=== PATIENT | female | born 1960 | race Caucasian/White ===

== ENCOUNTER 2017-09-13 05:01 | Inpatient (IN) | payer BC, OTHER ==
[2017-08-04 11:42] VITALS: Ht 160 cm; Wt 138.0 kg
--- NOTE | 2017-08-04 12:09 | PAT Medication Instructions ---
Service Date Aug 04, 2017. Current Home Medication List Aspirin (Aspirin Ec), 81 MG PO HS Cholecalciferol (D 2000), 1 TAB PO QAM Cyanocobalamin (B-12), 1 TAB PO QAM Furosemide (Lasix), 20 MG PO HS Levothyroxine Sodium (Synthroid), 150 MCG PO QAM Magnesium Oxide (Mg Supplement (Magnesium), 1 TAB PO QAM Meloxicam (Mobic), 15 MG PO UD Naproxen (Aleve), 2 TAB PO UD Potassium (Potassium), 1 TAB PO QAM Propranolol Hcl (Propranolol Hcl), 1 TAB PO TID Medication Instructions For Your Scheduled Surgery - Check with surgeon for instructions: Meloxicam (Mobic), 15 MG PO UD Naproxen (Aleve), 2 TAB PO UD - Hold the following medications the morning of surgery: Potassium (Potassium), 1 TAB PO QAM Magnesium Oxide (Mg Supplement (Magnesium), 1 TAB PO QAM Cholecalciferol (D 1999), 1 TAB PO QAM Cyanocobalamin (B-12), 1 TAB PO QAM - Take the following medications the morning of surgery with a sip of water: Propranolol Hcl (Propranolol Hcl), 1 TAB PO TID Levothyroxine Sodium (Synthroid), 150 MCG PO QAM - Take the following medications as scheduled the night before surgery: Aspirin (Aspirin Ec), 81 MG PO HS (okay to continue per surgeon) Furosemide (Lasix), 20 MG PO HS Propranolol Hcl (Propranolol Hcl), 1 TAB PO TID If you have any questions please call us at [phone] or [phone] or [phone]
[2017-08-04 12:53] LABS: BASO % 0.7 %; BASO ABS # 0.04 K/uL (0-0.2); COMPLETE YES; HEMATOCRIT 40.8 % (37-47); IG% 0.2 %; LYMPH % 39.5 %; LYMPH ABS # 2.37 K/uL (1.2-3.4); MEAN CELL VOLUME 89.9 fL (80-100); MEAN CORPUSCULAR HEMOGLOBIN 29.7 pg (25-34); MEAN CORPUSCULAR HGB CONC 33.1 g/dl (32-36); MEAN PLATELET VOLUME 10.2 fL (7.4-10.4); MONO % 7.3 %; NEUT % 48.3 %; PLATELET COUNT 227 K/uL (130-400); RED BLOOD COUNT 4.54 M/uL (4.2-5.4)
[2017-08-04 13:05] LABS: URINE APPEARANCE CLEAR (CLEAR); URINE BILIRUBIN NEG (NEG); URINE COLOR YELLOW; URINE NITRITE NEG (NEG); URINE SPECIFIC GRAVITY 1.023 (1.000-1.030); UROBILINOGEN NEG (NEG)
[2017-08-04 13:06] LABS: PROTHROMBIN TIME (PATIENT) 10.6 SECONDS (9.0-12.0)
[2017-08-04 13:09] LABS: MANUAL MICROSCOPIC REQUIRED? NO; REVIEW REQ? NO
[2017-08-04 13:35] LABS: BUN/CREATININE RATIO 20.2 (10-20); CALCIUM 8.6 mg/dl (8.5-10.1); CREATININE 0.93 mg/dl (0.60-1.20); POTASSIUM 4.4 mmol/L (3.5-5.1)
--- NOTE | 2017-08-04 13:56 | HISTORY & PHYSICAL EXAMINATION ---
DATE OF ADMISSION: 09/13/2017 CHIEF COMPLAINT: Right knee pain. HISTORY OF PRESENT ILLNESS: Ms. Rock is a 56-year-old female with a 5-year history of right knee pain. The patient rates her pain at 9/10. She has pain with her daily activities. She has limited standing and walking tolerance. Pain is worse with weightbearing. The patient has had prior injections, bracing, home exercise program, and NSAIDS without relief. She has failed conservative treatment and is now scheduled to proceed with right knee replacement. PAST MEDICAL HISTORY: Hypertension, hypothyroid, and acid reflux. She denies heart disease, diabetes or DVT. PAST SURGICAL HISTORY: D&C in 2016, in 1988, and T&A in 1965. SOCIAL HISTORY: The patient denies alcohol or tobacco use. She lives in a single story home. She is and works as a housing management. FAMILY HISTORY: Positive for DVT in her maternal and paternal aunts. MEDICATIONS: Furosemide 20 mg daily, propranolol 40 mg twice daily, levothyroxine 150 mcg daily, aspirin 81 mg daily, Aleve 220 mg, meloxicam 15 mg, vitamin D3 at 2000 units, magnesium 250 mg, vitamin B12 at 500 mcg, and potassium 99 mg. ALLERGIES: None. REVIEW OF SYSTEMS: See HPI. Ten other systems reviewed, all negative. PHYSICAL EXAMINATION: VITAL SIGNS: Height 5 feet 2 inches, weight 305, and BMI is 56. GENERAL: This is a well-developed and well-nourished, obese female who is alert and oriented x3. Mood and affect are appropriate. HEENT: Normocephalic and atraumatic. Mucous membranes are moist and intact. NECK: Supple without lymphadenopathy. HEART: Regular rate and rhythm without murmurs, rubs or gallops. LUNGS: Clear to auscultation without wheezes or rhonchi. ABDOMEN: Soft and nontender. Bowel sounds are equal and active. She does have a large pannus. EXTREMITIES: No ecchymosis, redness or warmth. She has a Emanuel cyst posteriorly. She has varus deformity with moderate effusion. Range of motion is from 20-100 degrees of flexion. She does have a fairly moderate flexion contracture. She has +1 laxity. She is neurovascularly intact with +5/5 strength. X-RAY EXAMINATION: AP and lateral views showed joint space narrowing and osteophyte formation. IMPRESSION: 1. Degenerative joint disease, right knee. 2. Morbid obesity. PLAN: The patient will be admitted for a right total knee arthroplasty. We will plan on aspirin for DVT prophylaxis. The patient's PCP is Dr. Oneill of [facility]. She is going to do outpatient physical therapy. MESHA
[~2017-09-13] VITALS: Ht 160 cm; Wt 138.0 kg
[2017-09-13] VITALS (10 sets, daily range): BP systolic 100–164; BP diastolic 63–95; PULSE 64–76; TEMP 36.5–37; O2SAT 94–97
[~2017-09-13 05:01] MED LIST: ASPI81TA28 PO; CHOL1TAB76 PO; CYAN50002 PO; FURO-85 PO; LEVO150T PO; MAGN500C PO; MELO15TA4 PO; NAPR1TAB9 PO; POTA99TA PO; PROP40TA5 PO
[2017-09-13] MEDS ORDERED: DEXAMETHASONE 4 MG TAB PO SCH (06:00)
[2017-09-13] MEDS ORDERED: CeleBREX 200 MG CAP PO SCH (06:00)
[2017-09-13] MEDS ORDERED: FAMOTIDINE 20 MG TAB PO SCH (06:00)
[2017-09-13] MEDS ORDERED: ROPIVACAINE 5MG/ML 30 ML 150 MG, BUPIVACAINE 0.5% MPF INJ 30 ML, EpINEphrine HCL INJ 0.... INFIL SCH ×8 (06:00)
[2017-09-13] MEDS ORDERED: ACETAMINOPHEN 500 MG TAB PO SCH (06:00)
[2017-09-13] MEDS ORDERED: CEFAZOLIN 3000MG IV PUSH 15 ML IV SCH (06:00)
[2017-09-13] MEDS ORDERED: METOCLOPRAMIDE HCL 10 MG TAB PO SCH (06:00)
[2017-09-13] MEDS ORDERED: LACTATED RINGER'S 1000ML IV SCH (06:00)
[2017-09-13] MEDS ORDERED: LACTATED RINGER'S 1000ML 500 ML IV ONE (06:00)
[2017-09-13] MEDS ORDERED: LACTATED RINGER'S 1000ML 1,000 ML IV SCH (06:00)
[2017-09-13] MEDS ORDERED: GABAPENTIN 300 MG CAP PO SCH (06:00)
[2017-09-13] MEDS ORDERED: BUPIVACAINE 0.5 % 5 MG/1 ML PF 10ML VIAL ONE (06:16)
[2017-09-13] MEDS ORDERED: ROPIVACAINE 0.5% 5 MG/ML 30 ML VIAL ONE (06:16)
[2017-09-13] MEDS: TRANEXAMIC ACID INJ 1,000 MG in SYRINGE 0 ML IV SCH ×2 (06:30→06:34)
[2017-09-13] MEDS ORDERED: POVIDONE-IODINE OP SOLN 30 ML BTL ONE (06:37)
[2017-09-13] MEDS ORDERED: BACITRACIN 50000 UNIT VIAL ONE (06:37)
[2017-09-13] MEDS ORDERED: ORTHO JOINT ANESTHETIC ONE (06:37)
[2017-09-13] MEDS ORDERED: MIDAZOLAM HCL 1 MG/ML 2ML VIAL ONE (06:39)
--- NOTE | 2017-09-13 07:01 | History & Physical Bridge Note ---
H&P Re-Evaluation Bridge Note: I have examined the patient, reviewed the History & Physical and in the interval since the performance of the History & Physical I have noted the following changes of clinical significance: No changes noted
--- NOTE | 2017-09-13 07:09 | History and Physical ---
History & Physical Date Sep 13, 2017. Chief Complaint Patient Lyubov Rokc presents as a 57-year-old white female being seen and evaluated for a plain pain about her knee for a total knee arthroplasty she's failed attempts at conservative management including injections anti- inflammatories relative rest activity modification History of Present Illness Ongoing pain about her knee presents for total knee arthroplasty The patient is a 57 year old female with complaints of Additional History Hepatic Disease: No Endocrine Disorder: Yes Kidney Disease: No Hypertension: Yes Heart Disease: No Bleeding Tendencies: No Infectious Diseases: No Allergies Coded Allergies: BEE STING (Verified Allergy, Mild, LOCALIZED SWELLING; OCCURED A CHILD , 09/13/17) NO KNOWN DRUG ALLERGIES (Verified Allergy, Unknown, , 09/13/17) Home Medications Scheduled Aspirin (Aspirin Ec), 81 MG PO HS Cholecalciferol (D 1999), 1 TAB PO QAM Cyanocobalamin (B-12), 1 TAB PO QAM Furosemide (Lasix), 20 MG PO HS Levothyroxine Sodium (Synthroid), 150 MCG PO QAM Magnesium Oxide (Mg Supplement (Magnesium), 1 TAB PO QAM Meloxicam (Mobic), 15 MG PO UD Naproxen (Aleve), 2 TAB PO UD Potassium (Potassium), 1 TAB PO QAM Propranolol Hcl (Propranolol Hcl), 1 TAB PO TID Physical Examination Skin: warm/dry, no rash Eyes: normal inspection, EOMI, sclerae normal ENT: normal ENT inspection, pharynx normal Head: normocephalic, atraumatic Neck: supple, no adenopathy, trachea midline Respiratory/Chest: lungs clear, normal breath sounds, no respiratory distress Cardiovascular: regular rate, rhythm, no edema, no murmur Abdomen / GI: normal bowel sounds, non tender Back: normal inspection Extremities: normal inspection, normal range of motion Neurologic/Psych: no motor/sensory deficits, alert, normal reflexes, oriented x 3 Addiitonal Comments: Patient has history of hypertension and hypothyroidism as well as acid reflux Diagnosis Severe end-stage DJD plan for total knee arthroplasty postoperative pain management DVT prophylaxis Plan of Treatment Postoperative pain management DVT prophylaxis antibiotics
[2017-09-13] MEDS ORDERED: EpHEDrine SULFATE INJ 50 MG/ML AMP IV PRN (08:30)
[2017-09-13] MEDS ORDERED: HYDROmorphone INJ 2 MG/ML SYR/VIAL IV PRN (08:30)
[2017-09-13] MEDS ORDERED: PHENYLEPHRINE 100MCG/ML 5ML SYR IV PRN (08:30)
[2017-09-13] MEDS ORDERED: ONDANSETRON INJ 2 MG/ML 2 ML VIAL IV PRN ×2 (08:30→09:30)
[2017-09-13] MEDS ORDERED: ATROPINE SULFATE 0.1 MG/ML 5ML SYR IV PRN (08:30)
--- NOTE | 2017-09-13 08:32 | [facility] Operative Report ---
Operative Report Operative Date Sep 13, 2017. Pre-Operative Diagnosis Right Knee Degenerative Joint Disease Post-Operative Diagnosis Same Procedure(s) Performed Right Total Knee Arthroplasty Cemented utilizing Taylor [employer] Nephew journey to patient-matched total knee arthroplasty utilizing size 3 femur to tibia 12 poly-[address] Aceves Clay Modeler Surgeon(s) Liz Preston PA-C Estimated Blood Loss 5ML Findings Severe end-stage DJD varus alignment osteophytes subchondral sclerosis cystic changes Nourse wants to conservative therapy Specimens A. Right knee bone and tissue Complication(s) None Disposition Recovery Room / PACU Indications Patient felt into conservative management including physical therapy anti- inflammatories relative rest likely modification bracing presents for total knee arthroplasty findings were noted as above Description of Procedure After proper prepping and draping of the Right lower extremity anterior midline incision was made over the region of the extensor extensor mechanism after meticulous hemostasis was obtained and maintained in subcutaneous tissues a medial parapatellar incision was made The patella was subluxed lateralward the medial lateral gutter were cleaned from any hypertrophic synovitis and scar tissue of the distal femoral block was placed and the distal femoral osteotomy cut was made subsequently the chamfers anterior and posterior osteotomy cuts were made utilizing the 4-in-1 block the tibia was subsequently subluxed anteriorward medial and ateral meniscal remnants were excised in their entirety remnants of the anterior and posterior cruciate ligaments were excised in their entirety excellent exposure of the proximal tibia was obtained the tibial osteotomy guide was placed on the proximal tibial osteotomy cut was made once again the knee was irrigated with copious amounts of sterile saline solution the patella was subsequently everted lateralward thickened scar tissue around the patella was removed the patella was subsequently cut utilizing a freehand technique and was drilled prepared for final preparation and placement of patella socially flexion-extension gaps were checked and the equal and symmetric trials were placed to the appropriate femoral and tibial trials with poly-spacer being placed for equal flexion and extension gaps and full range of motion including extension to 0 and flexion to 140 the trial components after having been taken to recovery range of motion was subsequently removed meticulous hemostasis was obtained and maintained subsequently a knee block injection of joint cocktail including ropivacaine 0.5% 150 mg. Bupivacaine 0.5 % epinephrine 1-200,030 mL's toradol 30 mg dexamethasone 4 mg ketamine 10 mg clonidine 100 micrograms normal saline solution 30 mg was infiltrated into the soft tissues of the posterior knee medial lateral gutters and periosteal synovium special attention was paid to protect neurovascular structures at all times subsequently trial components having been removed the knee was irrigated with sterile saline solution. debris was removed the proximal tibia was subsequently prepared and was made ready for the placement of the tibial component tibial component was also cemented and tamped into position the femoral component was subsequently placed and cemented in the position the patellar component was subsequently cemented in position because hemostasis once again obtained and maintained wound having been thoroughly irrigated with debridement and debridement lavage was performed as well as a medial parapatellar incision closed with #1 Vicryl in interrupted fashion subcutaneous was closed with #2 Vicryl skin was closed with skin clips. PA-C was necessary for prepping and drapping as well as wound closure of deep fascia Sub cutaneous tissue and skin and was necessary for the case. A sterile compressive dressing was placed patient was taken to recovery in stable condition of report dictated by Ketan I attest to the content of the Intraoperative Record and any orders documented therein. Any exceptions are noted below. I attest to the content of the Intraoperative Record and any orders documented therein. Any exceptions are noted below.
[2017-09-13] MEDS ORDERED: PROPOFOL IV EMULSION 10 MG/ML 20 ML VIAL IV ONE (08:44)
[2017-09-13] MEDS ORDERED: LIDOCAINE HCL 2% 2 ML VIAL (20MG/ML) ONE (08:44)
[2017-09-13] MEDS ORDERED: ALUMINUM/MAGNESIUM/SIMETH (MAALOX MAX) 30 ML UDC PO PRN (09:30)
[2017-09-13] MEDS ORDERED: MoRPHine SULFATE 2 MG/ML CARP IV PRN (09:30)
[2017-09-13] MEDS ORDERED: SOD PHOSPHATE/SOD BIPHOSPHATE ENEMA 132 ML BTL PR PRN (09:30)
[2017-09-13] MEDS ORDERED: BISACODYL 10 MG SUPP PR PRN (09:30)
[2017-09-13] MEDS ORDERED: OXYCODONE HCL IR 5 MG TAB (IMMEDIATE RELEASE) PO PRN (09:30)
[2017-09-13] MEDS ORDERED: MAGNESIUM HYDROXIDE SUSP 30 ML UDC PO PRN (09:30)
[2017-09-13] MEDS ORDERED: ZOLPIDEM TARTRATE 5 MG TAB PO PRN (09:30)
--- NOTE | 2017-09-13 09:43 | DIAGNOSTIC IMAGING REPORT ---
R KNEE 2 VIEWS ROUTINE CLINICAL HISTORY: Osteoarthritis. Postoperative study COMPARISON: None. DISCUSSION: There are postsurgical changes of a total right knee arthroplasty and patellar resurfacing. The femoral and tibial components appear well seated. Overlying surgical drains are evident. There is air within soft tissues consistent with recent surgery. IMPRESSION: Postsurgical changes of a total right knee arthroplasty. Electronically signed by: Ashutosh Johnson M.D. 09/13/2017 9:42 AM Dictated Date/Time: 09/13/2017 9:41 AM
--- NOTE | 2017-09-13 10:39 | Anesthesiology Progress Note ---
Anesthesia Post Op Note Date & Time Sep 13, 2017 at 10:39 Vital Signs Pain Intensity: 0 Vital Signs Past 12 Hours Date Time Temp Pulse Resp B/P (MAP) Pulse Ox O2 Delivery O2 Flow Rate FiO2 09/13/17 10:16 69 20 09/13/17 10:16 68 20 94 09/13/17 10:15 104/62 09/13/17 10:12 36.8 09/13/17 10:11 68 20 09/13/17 10:11 70 20 95 09/13/17 10:10 118/63 09/13/17 10:07 67 18 09/13/17 10:07 66 18 96 09/13/17 10:05 125/65 09/13/17 10:02 66 18 95 09/13/17 10:02 66 18 09/13/17 10:01 66 19 96 09/13/17 10:01 66 19 09/13/17 10:00 106/62 09/13/17 09:56 65 20 09/13/17 09:56 65 20 96 09/13/17 09:55 117/62 09/13/17 09:51 64 19 09/13/17 09:51 65 19 94 09/13/17 09:50 112/61 09/13/17 09:47 63 18 94 09/13/17 09:47 63 18 09/13/17 09:45 117/69 09/13/17 09:42 63 19 09/13/17 09:42 63 19 94 09/13/17 09:41 61 18 96 09/13/17 09:41 62 18 09/13/17 09:40 116/67 09/13/17 09:39 36.8 09/13/17 09:36 62 21 94 09/13/17 09:36 62 21 09/13/17 09:35 130/72 09/13/17 09:32 64 19 95 09/13/17 09:32 66 19 09/13/17 09:30 122/77 09/13/17 09:27 74 18 09/13/17 09:27 76 18 97 09/13/17 09:25 125/65 09/13/17 09:22 61 19 98 09/13/17 09:22 62 19 09/13/17 09:20 113/76 09/13/17 09:17 62 19 98 09/13/17 09:17 62 19 09/13/17 09:15 126/75 09/13/17 09:12 36.6 70 14 121/74 96 Oxymask 10 09/13/17 09:12 65 14 121/74 97 09/13/17 09:12 66 14 09/13/17 05:54 36.5 69 20 164/95 95 Room Air Notes Mental Status: alert / awake / arousable, participated in evaluation Pt Amnestic to Procedure: Yes Nausea / Vomiting: adequately controlled Pain: adequately controlled Airway Patency, RR, SpO2: stable & adequate BP & HR: stable & adequate Hydration State: stable & adequate Anesthetic Complications: no major complications apparent
[2017-09-13] MEDS: D5W AND 1/2NSS + 20MEQ KCL 1,000 ML IV SCH ×2 (11:35→21:32)
[2017-09-13] MEDS: KETOROLAC TROMETHAMINE 30 MG/ML VIAL IV. SCH ×3 (13:09→23:31)
[2017-09-13] MEDS: ACETAMINOPHEN 500 MG TAB PO SCH ×2 (13:57→21:32)
[2017-09-13] MEDS: PROPRANOLOL HCL 20 MG TAB PO SCH ×2 (13:57→20:40)
[2017-09-13] MEDS: CEFAZOLIN IV 2,000 MG in SYRINGE 0 ML IV SCH ×2 (15:59→23:31)
[2017-09-13] MEDS: ASPIRIN 81 MG ECTAB PO SCH (20:40)
[2017-09-13] MEDS: FUROSEMIDE 20 MG TAB PO SCH (20:40)
[2017-09-13] MEDS: SENNA 8.6 MG TAB PO SCH (20:40)
[2017-09-14 03:40] VITALS: BP 117/72; PULSE 67; TEMP 36.6; O2SAT 96
[2017-09-14] MEDS: ACETAMINOPHEN 500 MG TAB PO SCH ×3 (05:31→21:39)
[2017-09-14] MEDS: LEVOTHYROXINE 150 MCG TAB PO SCH (05:31)
[2017-09-14] MEDS: KETOROLAC TROMETHAMINE 30 MG/ML VIAL IV. SCH (05:32)
[2017-09-14 06:44] LABS: HEMATOCRIT 37.1 % (37-47); MEAN CELL VOLUME 88.5 fL (80-100); MEAN CORPUSCULAR HEMOGLOBIN 29.6 pg (25-34); MEAN CORPUSCULAR HGB CONC 33.4 g/dl (32-36); MEAN PLATELET VOLUME 10.2 fL (7.4-10.4); PLATELET COUNT 224 K/uL (130-400); RED BLOOD COUNT 4.19 M/uL (4.2-5.4); WHITE BLOOD COUNT 12.58 K/uL (4.8-10.8)
[2017-09-14 07:12] VITALS: BP 136/86; PULSE 57; TEMP 36.6; O2SAT 96
[2017-09-14] MEDS: D5W AND 1/2NSS + 20MEQ KCL 1,000 ML IV SCH (07:17)
[2017-09-14 07:21] LABS: BUN/CREATININE RATIO 20.2 (10-20); CALCIUM 8.5 mg/dl (8.5-10.1); CREATININE 0.99 mg/dl (0.60-1.20); POTASSIUM 4.4 mmol/L (3.5-5.1)
[2017-09-14] MEDS ORDERED: DEXAMETHASONE 4 MG TAB PO ONE (07:30)
--- NOTE | 2017-09-14 07:32 | Orthopedic Progress Note ---
Orthopedic Progress Note Date of Service Sep 14, 2017. Subjective Post OP Day: 1 Reports: feeling well, Denies: chest pain, SOB, nausea / vomiting, light headedness, calf pain Additional Notes: Doing well. Has been up ambulating without difficulty. No complaints this AM. Considering going home today. Objective calves soft nontender, N/V intact, dressing C/D/I, A&O x3, toes mobile, hemovac drainage (75ml latest shift) Date Time Temp Pulse Resp B/P (MAP) Pulse Ox O2 Delivery O2 Flow Rate FiO2 09/14/17 07:12 36.6 57 19 136/86 (103) 96 Room Air 09/14/17 03:40 36.6 67 18 117/72 (87) 96 Room Air 09/13/17 23:50 36.5 64 18 112/73 (86) 95 Room Air 09/13/17 23:45 Room Air 09/13/17 19:15 36.5 76 17 117/75 (89) 94 Room Air 09/13/17 16:00 95 Room Air 09/13/17 15:18 36.5 70 17 100/63 (75) 96 Nasal Cannula 2.0 09/13/17 13:38 36.8 75 16 112/64 (80) 96 Nasal Cannula 2.0 09/13/17 12:30 36.8 75 19 101/64 (76) 97 Nasal Cannula 2.0 09/13/17 11:28 37.0 72 16 122/71 (88) 95 Nasal Cannula 2.0 09/13/17 11:00 36.5 73 19 133/82 (99) 95 Nasal Cannula 2.0 09/13/17 10:30 Nasal Cannula 2.0 09/13/17 10:30 Nasal Cannula 2.0 09/13/17 10:30 36.8 73 16 110/71 (84) 96 Nasal Cannula 2.0 09/13/17 10:16 69 20 09/13/17 10:16 68 20 94 09/13/17 10:15 104/62 09/13/17 10:12 36.8 09/13/17 10:11 68 20 09/13/17 10:11 70 20 95 09/13/17 10:10 118/63 09/13/17 10:07 67 18 09/13/17 10:07 66 18 96 09/13/17 10:05 125/65 09/13/17 10:02 66 18 95 09/13/17 10:02 66 18 09/13/17 10:01 66 19 96 09/13/17 10:01 66 19 09/13/17 10:00 106/62 09/13/17 09:56 65 20 09/13/17 09:56 65 20 96 09/13/17 09:55 117/62 09/13/17 09:51 64 19 09/13/17 09:51 65 19 94 09/13/17 09:50 112/61 09/13/17 09:47 63 18 94 09/13/17 09:47 63 18 09/13/17 09:45 117/69 09/13/17 09:42 63 19 09/13/17 09:42 63 19 94 09/13/17 09:41 61 18 96 09/13/17 09:41 62 18 09/13/17 09:40 116/67 09/13/17 09:39 36.8 09/13/17 09:36 62 21 94 09/13/17 09:36 62 21 09/13/17 09:35 130/72 09/13/17 09:32 64 19 95 09/13/17 09:32 66 19 09/13/17 09:30 122/77 09/13/17 09:27 74 18 09/13/17 09:27 76 18 97 09/13/17 09:25 125/65 09/13/17 09:22 61 19 98 09/13/17 09:22 62 19 09/13/17 09:20 113/76 09/13/17 09:17 62 19 98 09/13/17 09:17 62 19 09/13/17 09:15 126/75 09/13/17 09:12 36.6 70 14 121/74 96 Oxymask 10 09/13/17 09:12 65 14 121/74 97 09/13/17 09:12 66 14 Laboratory Results 24 Hours: Test 09/14/17 06:23 Hematocrit 37.1 % Hemoglobin 12.4 g/dL Assessment & Plan Assessment: POD 1 s/p Right TKA Plan: PT/OT DVT Proph - BID ASA Pain Mgmt - OxyIR, Tramadol, Celebrex, Tylenol, Morphine DC plans - Plan for OPPT; POSSIBLE DC TO HOME TODAY; WILL RECHECK LATER IN THE DAY
--- NOTE | 2017-09-14 07:35 | Discharge Instructions ---
Discharge Instructions Date of Service Sep 14, 2017. Admission Reason for Admission: Right Knee Osteoarthritis Discharge Discharge Diagnosis / Problem: RIGHT KNEE DJD Discharge Goals Goal(s): Decrease discomfort, Improve function, Increase independence Activity Recommendations Activity Limitations: per Instructions/Follow-up section Weightbearing Status: Right weightbearing (as tolerated) . Instructions / Follow-Up Instructions / Follow-Up ACTIVITY RECOMMENDATIONS: SELF CARE INSTRUCTIONS AFTER TOTAL KNEE REPLACEMENT A. You may need to continue a physical therapy program after discharge from the hospital. There are several options available to you. Your doctor will assist you in selecting the best one for you. 1. An out-patient facility 2 to 3 times a week for therapy or home therapy. 2. Continue working on all exercises taught to you in the hospital. Your goals should be to increase bending of your knee to 90 degrees and beyond and to fully straighten your knee. B. You may progress at your own pace from walking with a walker or crutches to a cane; then to no assistive devices. C. Make walking a part of your daily routine. Be up as much as comfortable with rest periods throughout the day. Rest with leg elevation is very important. Use the ice wrap frequently for the first 3-4 weeks. D. There are no restrictions on activities. You may ride in a car, shop, participate in water hauler and all social activities. E. Wear the long elastic stockings (AUGUST hose) 20 hours a day for 2 weeks after surgery. They can be removed several times a day for laundering and for a bath. F. You may shower, no tub baths until cleared by your doctor. SPECIAL CARE INSTRUCTIONS: VERY IMPORTANT TO READ AND REVIEW A. There are a few signs you need to watch for after you are home. Call [facility] if you notice any of the followin. Increased severe knee pain. Some pain is expected especially when you exercise. 2. Increased swelling in your leg or knee; pain or swelling of the calf muscle in either lower leg. 3. Any fluid drainage from the incision. 4. Shortness of breath or chest pain. B. Please call [facility] at if you have any concerns or questions about your operation or recovery. The doctor or his nurse will return your call promptly. C. You must take antibiotics before dental work, bladder, bowel or other surgery. Your doctor will provide you with a permanent care to carry describing this precaution. IMPORTANT: * REMEMBER TO TAKE ASPIRIN, 81 MG, TWICE DAILY FOR 4 WEEKS UNLESS OTHERWISE DIRECTED. THIS IS YOUR BLOOD THINNER. * HIGH RISK PATIENTS MAY BE PRESCRIBED A STRONGER BLOOD THINNER. THIS WILL BE PROVIDED AT DISCHARGE. * CALL IF INCREASED PAIN, REDNESS, DRAINAGE OR FEVER GREATER THAT 101. * WEAR AUGUST HOSE 20 HOURS PER DAY FOR 2 WEEKS. * DERMABOND Prineo- This is a mesh tape dressing that is covered with glue. It should remain in place until the incision is properly healed, usually 10-14 days. This dressing is designed to naturally slough off. You may trim the excess mesh tape as it peels off. Incision may be briefly wet in a shower. Dry immediately by blotting with a clean, dry towel. Do not bath or swim until instructed by your doctor. Do not scratch, rub, or pick at the dressing. Do not apply any topical ointments or lotions until dressing is completely removed and/or instructed by your doctor. There may be a small piece of suture material at one end of your incision. Do not pull or trim this. If it is bothersome or catching on clothing, you may cover it with a band-aid. . FOLLOW UP VISIT: If appointment is not already scheduled: Please call [facility] to make a follow-up appointment for 2 weeks after your surgery at . Current Hospital Diet Patient's current hospital diet: Low Fat Diet Discharge Diet Recommended Diet: Low Fat Diet Procedures Procedures Performed: Right Total Knee Arthroplasty Cemented utilizing Taylor & Nephew journey to patient-matched total knee arthroplasty utilizing size 3 femur to tibia 12 poly-29 oval patella Pending Studies Studies pending at discharge: no Laboratory Results Hemoglobin A1c Test 08/04/17 12:25 Range/Units Estimated Average Glucose 108 mg/dl Hemoglobin A1c 5.4 4.5-5.6 % Medical Emergencies . Who to Call and When: Medical Emergencies: If at any time you feel your situation is an emergency, please call 911 immediately. . Non-Emergent Contact Non-Emergency issues call your: Surgeon Call Non-Emergent contact if: temperature is above 101.5, your pain is not controlled, your pain is worsening, wound has increased drainage, wound has increased redness . "Provider Documentation" section prepared by Moe Mazariegos. . VTE Core Measure Inpt VTE Proph given/why not?: Other Anticoagulation, T.E.D. Stockings, SCD's [place] Drug Monitoring Program Search Results: patient reviewed within database, no issues identified
[2017-09-14] MEDS ORDERED: SENN1TAB80 PO (07:40)
[2017-09-14] MEDS ORDERED: ASPI81TA28 PO (07:40)
[2017-09-14] MEDS ORDERED: RXC5 PO (07:40)
[2017-09-14] MEDS ORDERED: CLB200 PO (07:40)
[2017-09-14] MEDS ORDERED: ACET-24 PO (07:40)
[2017-09-14] MEDS: ASPIRIN 81 MG ECTAB PO SCH ×2 (08:37→20:42)
[2017-09-14] MEDS: PROPRANOLOL HCL 20 MG TAB PO SCH ×3 (08:37→20:42)
[2017-09-14] MEDS: PANTOprazole SOD 40 MG TAB PO SCH (08:38)
[2017-09-14] MEDS: MULTIVITAMIN TAB PO SCH (08:38)
--- NOTE | 2017-09-14 08:58 | Anesthesiology Progress Note ---
Anesthesia Post Op Note Date & Time Sep 14, 2017 at 08:57 Vital Signs Pain Intensity: 0.0 Vital Signs Past 12 Hours Date Time Temp Pulse Resp B/P (MAP) Pulse Ox O2 Delivery O2 Flow Rate FiO2 09/14/17 07:30 Room Air 09/14/17 07:12 36.6 57 19 136/86 (103) 96 Room Air 09/14/17 03:40 36.6 67 18 117/72 (87) 96 Room Air 09/13/17 23:50 36.5 64 18 112/73 (86) 95 Room Air 09/13/17 23:45 Room Air Notes Mental Status: alert / awake / arousable, participated in evaluation Pt Amnestic to Procedure: Yes Nausea / Vomiting: adequately controlled Pain: adequately controlled Airway Patency, RR, SpO2: stable & adequate BP & HR: stable & adequate Hydration State: stable & adequate Neuraxial Anesthesia: sensory block resolved Anesthetic Complications: no major complications apparent
[2017-09-14] MEDS ORDERED: NON-FORMULARY MEDICATION (Potassium 1 TAB) PO SCH (09:00)
[2017-09-14 13:54] VITALS: BP 136/82; PULSE 68
[2017-09-14 15:00] VITALS: BP 118/80; PULSE 67; TEMP 36.4; O2SAT 96
[2017-09-14 20:40] VITALS: BP 130/76; PULSE 64
[2017-09-14] MEDS: SENNA 8.6 MG TAB PO SCH (20:42)
[2017-09-14] MEDS: FUROSEMIDE 20 MG TAB PO SCH (20:42)
[2017-09-14] MEDS: CeleBREX 200 MG CAP PO SCH (20:42)
[2017-09-14 22:50] VITALS: BP 143/84; PULSE 67; TEMP 36.6; O2SAT 94
[2017-09-15] MEDS: LEVOTHYROXINE 150 MCG TAB PO SCH (05:47)
[2017-09-15] MEDS: ACETAMINOPHEN 500 MG TAB PO SCH (05:47)
[2017-09-15] MEDS ORDERED: TRAM-10 PO (07:06)
--- NOTE | 2017-09-15 07:09 | Orthopedic Progress Note ---
Orthopedic Progress Note Date of Service Sep 15, 2017. Subjective Post OP Day: 2 Reports: feeling well, Denies: complaints Objective calves soft nontender, N/V intact, incision C/D/I, A&O x3, toes mobile Date Time Temp Pulse Resp B/P (MAP) Pulse Ox O2 Delivery O2 Flow Rate FiO2 09/15/17 00:10 Room Air 09/14/17 22:50 36.6 67 16 143/84 (103) 94 Room Air 09/14/17 20:40 64 130/76 (94) 09/14/17 15:30 Room Air 09/14/17 15:00 36.4 67 18 118/80 (93) 96 Room Air 09/14/17 13:54 68 136/82 (100) 09/14/17 07:30 Room Air 09/14/17 07:12 36.6 57 19 136/86 (103) 96 Room Air Assessment & Plan Assessment: POD 2 s/p Right TKA Plan: PT/OT DVT Proph - BID ASA Pain Mgmt - OxyIR, Celebrex, Tylenol, Morphine DC plans - Plan for OPPT; DC TO HOME TODAY
[2017-09-15 07:40] VITALS: BP 126/82; PULSE 72; TEMP 36.5; O2SAT 94
[2017-09-15] MEDS: ASPIRIN 81 MG ECTAB PO SCH (07:55)
[2017-09-15] MEDS: PANTOprazole SOD 40 MG TAB PO SCH (07:56)
[2017-09-15] MEDS: MULTIVITAMIN TAB PO SCH (07:56)
[2017-09-15] MEDS: CeleBREX 200 MG CAP PO SCH (07:56)
[2017-09-15] MEDS: PROPRANOLOL HCL 20 MG TAB PO SCH (07:56)
[2017-09-15 08:05] VITALS: BP 126/82; PULSE 72; TEMP 36.5; O2SAT 94
[2017-09-15 08:25] VITALS: O2SAT 94
== END 2017-09-15 12:00 | disposition home or self-care (01) | DRG 470 ==
LOC: C.ACU 05:01 → C.3E 06:50 → ENRESERV 10:09
PROVIDERS: ADMIT Orthopaedic Surgery; ATTEND Orthopaedic Surgery
PROC: 0SRC0J9 Replacement of Right Knee Joint with Synthetic Substitute, Cemented, Open Approach (ICD-10-PCS; principal; 2017-09-13 07:00)
DX: M17.11 Unilateral primary osteoarthritis, right knee (principal); Z68.43 Body mass index [BMI] 50.0-59.9, adult; E66.01 Morbid (severe) obesity due to excess calories; I10 Essential (primary) hypertension; E03.9 Hypothyroidism, unspecified; K21.9 Gastro-esophageal reflux disease without esophagitis